=== PATIENT | male | born 1935 | race Caucasian/White ===

== ENCOUNTER 2017-04-29 07:11 | Day surgery (SDC) | payer MEDICARE, BC ==
[~2017-04-29 07:11] MED LIST: Bupivacaine 0.5%/EPINEPHrine 1:200,000 30 ML SDV ONE; Lactated Ringers 1,000 ML IV SCH; Midazolam 1 MG/ML 2 ML SDV ONE; Propofol 200 MG/20 ML SDV ONE; Sodium Chloride 0.9% 5 ML Syringe FLUSH PRN; Water For Injection, Sterile 20 ML ONE; ceFAZolin 1 GM Vial ONE; fentaNYL 100 MCG/2 ML SDV ONE
[2017-04-29] MEDS ORDERED: Lactated Ringers 1,000 ML ONE (07:26)
[2017-04-29] MEDS ORDERED: Propofol 200 MG/20 ML SDV ONE ×2 (08:01→08:32)
[2017-04-29] MEDS ORDERED: Midazolam 1 MG/ML 2 ML SDV IV ONE (08:10)
[2017-04-29] MEDS ORDERED: ceFAZolin 1 GM Vial IV ONE (08:10)
[2017-04-29] MEDS ORDERED: fentaNYL 100 MCG/2 ML SDV IV ONE (08:10)
[2017-04-29] MEDS ORDERED: Propofol 200 MG/20 ML SDV IV ONE (08:10)
[2017-04-29] MEDS ORDERED: Bupivacaine 0.5%/EPINEPHrine 1:200,000 30 ML SDV INFILT ONE ×2 (08:40)
[2017-04-29] MEDS ORDERED: Water For Injection, Sterile 20 ML SDV ONE (08:40)
[2017-04-29] MEDS ORDERED: ceFAZolin 1 GM Vial ONE (08:40)
--- NOTE | 2017-04-29 10:13 | PCM.OPNOTE ---
- General Post-Op/Procedure Note Date of Surgery/Procedure: 04/29/17 Operative Procedure(s): Left Inguinal Herniorraphy with mesh Repair. Anesthesia Technique: Moderate Sedation Primary Surgeon: Avni Spencer Condition: Good Free Text/Narrative:: Dictated.
[2017-04-29] MEDS ORDERED: Acetaminophen 325 MG Tab PO STA (14:59)
[2017-04-29 15:07] VITALS: BP 162/81
--- NOTE | 2017-04-30 08:20 | OR ---
DATE OF SURGERY: 04/29/2017 SURGEON: Avni Spencer MD PREOPERATIVE DIAGNOSIS: Left inguinal hernia. POSTOPERATIVE DIAGNOSIS: Left inguinal hernia, indirect and indirect components. OPERATION PERFORMED: Left inguinal herniorrhaphy using Marlex mesh. INCIDENTAL FINDINGS: Mild ascites noted in the abdomen. The fluid was sent for culture sensitivity and cytology. Informed consent was obtained from the patient regarding this procedure. All possible complications were thoroughly discussed with this patient. These include infection, pain, bleeding, vascular injury, nerve injury, recurrence, and other unknown complications. The patient decided to proceed. The patient was taken to the operating room. A satisfactory spinal anesthetic was administered by the annealing torch operator. The patient was then kept in the supine position. His abdomen was thoroughly prepped and draped in the usual fashion. A linear incision was made in the left inguinal region parallel to the inguinal ligament. Subcutaneous dissection was performed. The external oblique fascia was opened along the line of the skin incision. The cord structures were identified and kept out of harm's way. A fairly significant indirect sac was noted. The sac was carefully dissected away from the spermatic cord and neighboring structures. The sac was opened. There was a [id number] amount of ascitic fluid present. Fluid was aspirated. The fluid was sent for cytology as well as C and S. A high ligation of the sac was then performed with 0-silk suture. The excess sac was excised and sent for histology. The direct defect was sutured by placing a Marlex mesh and attaching it to the tissue around the pubic symphysis, the conjoint tendon, and the reflected portion of the inguinal ligament inferiorly. Good support of the posterior floor in the direct area was obtained. The wound was irrigated. The external oblique fascia was closed or the cord structures. The ilioinguinal nerve was seen and kept out of harm's way throughout the procedure. Subcutaneous tissue was approximated with 3-0 Polysorb. Skin was closed using stainless steel clips. Approximately 5 mL of Marcaine 0.5% was instilled into the wound for postoperative pain. The patient tolerated the procedure well. He was transferred to the recovery room in excellent condition. Blood loss was negligible. Sponge, needle, and instrument count were correct. /[id number]/MODL MTDD
== END 2017-04-29 15:42 | disposition home or self-care (01) ==
LOC: KA.SDS 07:11
PROVIDERS: ATTEND Family Medicine
DX: K40.90 Unilateral inguinal hernia, without obstruction or gangrene, not specified as recurrent (principal); E78.5 Hyperlipidemia, unspecified; N40.1 Benign prostatic hyperplasia with lower urinary tract symptoms; Z79.899 Other long term (current) drug therapy
CPT/HCPCS: 00830; 49505; 87070; 87075; A9270; C1781; J0690; J2250; J2704; J3010; J7120; 88112; 88302; 88305

== ENCOUNTER 2017-04-29 22:56 | Emergency (ER) | payer MEDICARE, BC ==
--- NOTE | 2017-04-29 23:13 | EDM.PDOC ---
ED HPI GENERAL MEDICAL PROBLEM - General Chief Complaint: Genitourinary Problem Stated Complaint: bloody urine Time Seen by Provider: 04/29/17 23:07 Source of Information: Reports: Patient History Limitations: Reports: No Limitations - History of Present Illness INITIAL COMMENTS - FREE TEXT/NARRATIVE: PT STATES HE UNDERWENT HERNIA REPAIR BY DR DRAKE THIS MORNING AND REQUIRED A URINARY ZAMAN CATH FOR RETENTION. NOTICED AT ABOUT 2000 TONIGHT BLOOD IN ZAMAN BAG. SEEMED TO GET WORSE SO PRESENTED TO ER. DENIES ABD PAIN, TESTICULAR PAIN, CP, SOB, N/V. Duration: Hour(s): Severity: Mild Improves with: Reports: None Worsens with: Reports: None Associated Symptoms: Reports: No Other Symptoms - Related Data Allergies Allergy/AdvReac Type Severity Reaction Status Date / Time No Known Drug Allergies Allergy NKDA Verified 04/29/17 07:34 Home Meds: Home Meds Flaxseed Oil [Flax Oil] 1,000 mg PO DAILY 04/28/17 [History] Multivitamin with Minerals [Multiple Vitamin] 1 tab PO DAILY 04/28/17 [History] Pravastatin [Pravachol] 40 mg PO DAILY 04/28/17 [History] Vardenafil HCl [Levitra] 2.5 mg PO DAILY PRN 04/28/17 [History] amLODIPine [Norvasc] 10 mg PO DAILY 04/28/17 [History] Past Medical History HEENT History: Reports: Cataract, Impaired Vision Cardiovascular History: Reports: High Cholesterol, Hypertension Genitourinary History: Reports: BPH, Other (See Below) Other Genitourinary History: Erectial dysfunction Oncologic (Cancer) History: Reports: Squamous Cell Carcinoma - Infectious Disease History Infectious Disease History: Reports: Chicken Pox, Measles, Mumps - Past Surgical History HEENT Surgical History: Reports: Cataract Surgery Cardiovascular Surgical History: Reports: None Male Surgical History: Reports: None Oncologic Surgical History: Reports: None Social & Family History - Family History Family Medical History: Noncontributory - Tobacco Use Smoking Status *Q: Never Smoker - Caffeine Use Caffeine Use: Reports: Tea - Recreational Drug Use Recreational Drug Use: No ED ROS GENERAL - Review of Systems Review Of Systems: ROS reveals no pertinent complaints other than HPI. Constitutional: Reports: No Symptoms HEENT: Reports: No Symptoms Respiratory: Reports: No Symptoms Cardiovascular: Reports: No Symptoms Endocrine: Reports: No Symptoms GI/Abdominal: Reports: No Symptoms : Reports: Hematuria Musculoskeletal: Reports: No Symptoms Skin: Reports: No Symptoms Neurological: Reports: No Symptoms Psychiatric: Reports: No Symptoms Hematologic/Lymphatic: Reports: No Symptoms Immunologic: Reports: No Symptoms ED EXAM, RENAL/ - Physical Exam Exam: See Below Exam Limited By: No Limitations General Appearance: Alert, WD/WN, No Apparent Distress Throat/Mouth: Normal Inspection, Normal Oropharynx, No Airway Compromise Respiratory/Chest: No Respiratory Distress, Lungs Clear, Normal Breath Sounds Cardiovascular: Regular Rate, Rhythm GI/Abdominal: Normal Bowel Sounds, Soft, Non-Tender, No Distention (Male) Exam: Other (URINARY ZAMAN IN PLACE). No: Circumcised Back Exam: Normal Inspection. No: CVA Tenderness (L), CVA Tenderness (R) Extremities: Normal Inspection, No Pedal Edema Neurological: Alert, Oriented, Normal Cognition Psychiatric: Normal Affect, Normal Mood Skin Exam: Warm, Dry, Intact, Normal Color, No Rash Course - Re-Assessments/Exams Free Text/Narrative Re-Assessment/Exam: 04/29/17 23:12 PT AFEBRILE, NONTOXIC APPEARING, VSS. URINARY ZAMAN IRRIGATED TO CLEAR. NO BLOOD CLOTS OR DIFFICULTY NOTED. PT SCHEDULED FOR F/U AT [facility] IN AM Departure - Departure Time of Disposition: 23:14 Disposition: Home, Self-Care 01 Condition: Good Clinical Impression: Hematuria syndrome Zaman catheter problem Qualifiers: Encounter type: initial encounter Qualified Code(s): T83.9XXA - Unspecified complication of genitourinary prosthetic device, implant and graft, initial encounter - Discharge Information Instructions: Zaman Catheter Care, Adult Referrals: Avni Spencer MD [Physician] - Forms: ED Department Discharge Additional Instructions: FOLLOW UP AT [facility] TOMORROW MORNING SCHEDULED - Assessment/Plan Assessment:: HEMATURIA SECONDARY TO ZAMAN CATH Plan: F/U AT [facility] IN AM
[2017-04-29 23:31] VITALS: BP 163/59
== END 2017-04-29 23:20 | disposition home or self-care (01) ==
LOC: KA.ED 22:56
DX: T83.83XA Hemorrhage due to genitourinary prosthetic devices, implants and grafts, initial encounter (principal); R31.9 Hematuria, unspecified; E78.00 Pure hypercholesterolemia, unspecified; I10 Essential (primary) hypertension; K40.90 Unilateral inguinal hernia, without obstruction or gangrene, not specified as recurrent; E78.5 Hyperlipidemia, unspecified; N40.1 Benign prostatic hyperplasia with lower urinary tract symptoms; Z98.49 Cataract extraction status, unspecified eye; Z79.899 Other long term (current) drug therapy
CPT/HCPCS: 00830; 49505; 87070; 87075; 88112; 88302; 88305; 99282; 99283; A9270; C1781; J0690; J2250; J2704; J3010; J7120

== ENCOUNTER 2021-02-14 13:00 | Emergency (ER) | payer MEDICARE, BC ==
[2021-02-14] MEDS ORDERED: Sodium Chloride 0.9% 1,000 ML IV SCH (13:30)
--- NOTE | 2021-02-14 13:31 | EDM.PDOC ---
ED HPI GENERAL MEDICAL PROBLEM - General Chief Complaint: Cardiovascular Problem Stated Complaint: DIZZY Time Seen by Provider: 02/14/21 13:05 Source of Information: Reports: Patient, Significant Other History Limitations: Reports: No Limitations - History of Present Illness INITIAL COMMENTS - FREE TEXT/NARRATIVE: Patient presents with some general weakness for about a week. He fell 8 days ago. He has cancer in "all" his bones but it doesn't seem to be progressing fast. Had that checked 2 weeks ago at [place]. He doesn't drink much water, about 2 cups a day. He feels a little dizzy or lightheaded sometimes - Related Data Allergies Allergy/AdvReac Type Severity Reaction Status Date / Time No Known Drug Allergies Allergy NKDA Verified 02/14/21 13:07 Home Meds: Home Meds Multivitamin with Minerals [Multiple Vitamin] 1 tab PO DAILY 04/28/17 [History] Pravastatin [Pravachol] 40 mg PO BEDTIME 04/28/17 [History] Vardenafil HCl [Levitra] 2.5 mg PO DAILY PRN 04/28/17 [History] amLODIPine [Norvasc] 10 mg PO BEDTIME 04/28/17 [History] Finasteride 5 mg PO DAILY 02/14/21 [History] Past Medical History HEENT History: Reports: Cataract, Impaired Vision Cardiovascular History: Reports: High Cholesterol, Hypertension Genitourinary History: Reports: BPH, Other (See Below) Other Genitourinary History: Erectial dysfunction Oncologic (Cancer) History: Reports: Squamous Cell Carcinoma - Infectious Disease History Infectious Disease History: Reports: Chicken Pox, Measles, Mumps - Past Surgical History HEENT Surgical History: Reports: Cataract Surgery Cardiovascular Surgical History: Reports: None Male Surgical History: Reports: None Oncologic Surgical History: Reports: None Social & Family History - Family History Family Medical History: No Pertinent Family History - Caffeine Use Caffeine Use: Reports: Tea ED ROS GENERAL - Review of Systems Review Of Systems: See Below Constitutional: Reports: Weakness. Denies: Fever, Chills, Malaise HEENT: Denies: Ear Pain, Throat Pain, Vision Change Respiratory: Reports: Shortness of Breath (none to mild). Denies: Cough Cardiovascular: Reports: Lightheadedness (sometimes feels "heavy"). Denies: Chest Pain, Syncope GI/Abdominal: Denies: Abdominal Pain, Constipation, Diarrhea, Nausea, Vomiting : Denies: Dysuria, Flank Pain Musculoskeletal: Denies: Neck Pain, Shoulder Pain, Arm Pain, Back Pain, Hand Pain, Leg Pain, Foot Pain Skin: Denies: Cyanosis, Jaundice, Mottled, Pallor, Diaphoresis Neurological: Denies: Confusion, Dizziness, Headache, Seizure, Syncope, Trouble Speaking, Difficulty Walking Psychiatric: Denies: Agitation, Anxiety, Confusion ED EXAM, GENERAL - Physical Exam Exam: See Below Exam Limited By: No Limitations General Appearance: Alert, WD/WN, No Apparent Distress Eye Exam: Bilateral Eye: EOMI, Normal Inspection, PERRL Ears: Normal External Exam, Hearing Grossly Normal Nose: Normal Inspection, No Blood Throat/Mouth: Normal Inspection, Normal Lips, Normal Voice, No Airway Compromise Head: Atraumatic, Normocephalic Neck: Normal Inspection, Full Range of Motion Respiratory/Chest: No Respiratory Distress, Lungs Clear, Normal Breath Sounds, No Accessory Muscle Use Cardiovascular: Normal Peripheral Pulses, No Edema, No Gallop, No JVD, No Murmur, Bradycardia (55) GI/Abdominal: Normal Bowel Sounds, Soft, Non-Tender, No Organomegaly, No Distention, No Abnormal Bruit Back Exam: Normal Inspection, Full Range of Motion. No: CVA Tenderness (L), CVA Tenderness (R) Extremities: Normal Inspection, Normal Range of Motion, Non-Tender Neurological: Alert, Oriented, Normal Cognition, No Motor/Sensory Deficits Psychiatric: Normal Affect, Normal Mood Skin Exam: Warm, Dry, Intact, Normal Color, No Rash Course - Vital Signs Last Recorded V/S: Last Vital Signs Temp 97.2 F 02/14/21 13:08 Pulse 51 L 02/14/21 14:15 Resp 14 02/14/21 14:15 BP 137/63 02/14/21 14:15 Pulse Ox 96 02/14/21 14:15 - Orders/Labs/Meds Orders: Active Orders 24 hr Category Date Time Status EKG Documentation Completion [RC] ASDIRECTED Care 02/14/21 13:17 Ordered Sodium Chloride 0.9% [Normal Saline] 1,000 ml Med 02/14/21 13:30 Ordered IV ASDIRECTED EKG 12 Lead [EK] Stat Ther 02/14/21 13:16 Ordered Medication Orders Sodium Chloride (Normal Saline) 1,000 mls @ 1,000 mls/hr IV ASDIRECTED KAYLEEN Last Admin: 02/14/21 13:26 Dose: 1,000 mls/hr Documented by: HUONG Labs: Laboratory Tests 02/14/21 02/14/21 02/14/21 Range/Units 13:10 13:10 13:10 WBC 10.90 H (5.00-10.00) 10^3/uL RBC 4.94 (4.50-6.00) 10^6/uL Hgb 14.6 (13.0-17.0) g/dL Hct 41.7 (40.0-52.0) % MCV 84.4 (82.0-92.0) fL MCH 29.6 (27.0-31.0) pg MCHC 35.0 (32.0-36.0) g/dL RDW 13.1 (11.5-14.5) % Plt Count 213 (150-400) 10^3/uL MPV 10.4 (7.4-10.4) fL Immature Gran % (Auto) 0.2 (0.0-5.0) % Neut % (Auto) 47.0 L (50.0-70.0) % Lymph % (Auto) 44.5 H (20.0-40.0) % Desha % (Auto) 5.8 (2.0-8.0) % Eos % (Auto) 1.9 (1.0-3.0) % Baso % (Auto) 0.6 (0.0-1.0) % Neut # (Auto) 5.13 (2.50-7.00) 10^3/uL Lymph # (Auto) 4.85 H (1.00-4.00) 10^3/uL Desha # (Auto) 0.63 (0.10-0.80) 10^3/uL Eos # (Auto) 0.21 (0.10-0.30) 10^3/uL Baso # (Auto) 0.06 (0.00-0.10) 10^3/uL Immature Gran # (Auto) 0.02 (0.00-0.50) 10^3/uL Sodium 137 (136-145) mmol/L Potassium 4.0 (3.5-5.1) mmol/L Chloride 104 (98-107) mmol/L Carbon Dioxide 20.1 L (21.0-32.0) mmol/L Anion Gap 16.9 H (5-15) mmol/L BUN 31 H (7-18) mg/dL Creatinine 1.23 H (0.51-1.17) mg/dL Est Cr Clr Drug Dosing 38.72 mL/min Estimated GFR (MDRD) 56 mL/min Glucose 103 (70-140) mg/dL Calcium 8.8 (8.7-10.3) mg/dL Magnesium 1.8 (1.8-2.4) mg/dL Total Bilirubin 0.6 (0.2-1.0) mg/dL AST 12 L (15-37) U/L ALT 28 (14-63) U/L Alkaline Phosphatase 65 (46-116) U/L Troponin I High Sens < 4.000 (0-76.000) pg/mL Total Protein 8.0 (6.4-8.2) g/dL Albumin 3.06 L (3.40-5.00) g/dL Meds: Medications Generic Name Dose Route Start Last Admin Trade Name Freq PRN Reason Stop Dose Admin Sodium Chloride 1,000 mls @ 1,000 mls/hr 02/14/21 13:30 02/14/21 13:26 Normal Saline IV 1,000 mls/hr ASDIRECTED [facility] Administration - Re-Assessments/Exams Free Text/Narrative Re-Assessment/Exam: 02/14/21 16:27 EKG shows sinus bradycardia with occasional PVCs. Rhythm shows PVCs with quite long pauses and overall HR of 57. Troponin is negative. BUN and Creat are mildly elevated but appears chronic. Patient doesn't feel a lot improved after the fluid bolus. I discussed case with pneumatic systems operator Dr. Cummings at [facility] who reviewed the EKG and rhythm strip. He thinks it is likely there isn't a block but just a compensatory pause after a PVC. He feels it would be reasonable to observe there however. I discussed findings and recommendations with patient and his . They would like to go to [place] today and find out what is going on. I called back and am now waiting for hospitalist to call. 02/14/21 16:40 The plan is to transfer patient to [facility] for cardiology consult once accepted by hospitalist. They have a couple patients ahead of us and may be delayed. Patient is stable. Wants to go by private vehicle with his driving which I feel is reasonable, especially since the pneumatic systems operator felt patient may be okay to follow outpatient. 02/14/21 16:54 Dr. Gomez, hospitalist called back with acceptance. They will call with room number shortly. I discussed plan with patient and his . She will drive him to [place]. Patient is full code per discussion today. Departure - Departure Time of Disposition: 16:54 Disposition: DC/Tfer to [facility] 02 Reason for Transfer *Q: Other Condition: Good Clinical Impression: General weakness, Bradycardia, PVCs (premature ventricular contractions) Dysrhythmia, cardiac Qualifiers: Arrhythmia type: unspecified cardiac arrhythmia Qualified Code(s): I49.9 - Cardiac arrhythmia, unspecified Forms: ED Department Discharge Sepsis Event Note (ED) - Evaluation Sepsis Screening Result: No Definite Risk - Focused Exam Vital Signs: Vital Signs Temp Pulse Resp BP Pulse Ox 02/14/21 14:15 51 L 14 137/63 96 02/14/21 14:01 48 L 20 132/67 97 02/14/21 13:45 53 L 14 131/72 95 02/14/21 13:31 52 L 17 138/65 96 02/14/21 13:21 62 18 133/60 94 L 02/14/21 13:08 97.2 F 45 L 20 140/63 97 - My Orders Last 24 Hours: My Active Orders 02/14/21 13:16 EKG 12 Lead [EK] Stat 02/14/21 13:17 EKG Documentation Completion [RC] ASDIRECTED 02/14/21 13:30 Sodium Chloride 0.9% [Normal Saline] 1,000 ml IV ASDIRECTED - Assessment/Plan Last 24 Hours: My Active Orders 02/14/21 13:16 EKG 12 Lead [EK] Stat 02/14/21 13:17 EKG Documentation Completion [RC] ASDIRECTED 02/14/21 13:30 Sodium Chloride 0.9% [Normal Saline] 1,000 ml IV ASDIRECTED
[2021-02-14 13:36] LABS: ANION GAP 16.9 mmol/L (5-15); CHLORIDE,CL 104 mmol/L (98-107); SODIUM,NA 137 mmol/L (136-145)
[2021-02-14 18:04] VITALS: BP 160/90; PULSE 70
== END 2021-02-14 18:01 ==
LOC: KA.ED 13:00
DX: I49.3 Ventricular premature depolarization (principal); I49.9 Cardiac arrhythmia, unspecified; E78.00 Pure hypercholesterolemia, unspecified; I10 Essential (primary) hypertension; Z79.899 Other long term (current) drug therapy
CPT/HCPCS: 36415; 80053; 83735; 84484; 85025; 93005; 99285; J7030; 99284

== ENCOUNTER 2023-05-12 18:33 | Emergency (ER) | payer MEDICARE, BC ==
[2023-05-12] MEDS ORDERED: Sodium Chloride 0.9% 10 ML Syringe FLUSH PRN (18:45)
[2023-05-12 19:13] LABS: BASOPHILS ABSOLUTE AUTO 0.03 10^3/uL (0.00-0.10); BASOPHILS PERCENT AUTO 0.2 % (0.0-1.0); HEMATOCRIT 42.3 % (40.0-52.0); HEMOGLOBIN 14.7 g/dL (13.0-17.0); IMMATURE GRAN ABSOLUTE AUTO 0.05 10^3/uL (0.00-0.50); IMMATURE GRAN PERCENT AUTO 0.4 % (0.0-5.0); LYMPHOCYTES ABSOLUTE AUTO 1.19 10^3/uL (1.00-4.00); LYMPHOCYTES PERCENT AUTO 8.6 % (20.0-40.0); MEAN CORPUSCULAR HEMOGLOBIN 29.5 pg (27.0-31.0); MEAN CORPUSCULAR HGB CONC 34.8 g/dL (32.0-36.0); MEAN CORPUSCULAR VOLUME 84.9 fL (82.0-92.0); MEAN PLATELET VOLUME 8.8 fL (7.4-10.4); MONOCYTES ABSOLUTE AUTO 0.38 10^3/uL (0.10-0.80); MONOCYTES PERCENT AUTO 2.8 % (2.0-8.0); NEUTROPHILS ABSOLUTE AUTO 12.13 10^3/uL (2.50-7.00); PLATELET COUNT,PLT 268 10^3/uL (150-400); RED BLOOD CELL COUNT 4.98 10^6/uL (4.50-6.00); RED CELL DISTRIBUTION WIDTH 12.9 % (11.5-14.5); WHITE BLOOD CELL COUNT,WBC 13.78 10^3/uL (5.00-10.00)
[2023-05-12] MEDS ORDERED: Acetaminophen 500 MG Tab PO ONE (19:16)
[2023-05-12 19:30] LABS: ALANINE AMINOTRANSFERASE,ALT 23 U/L (14-63); ALBUMIN 2.78 g/dL (3.40-5.00); ALKALINE PHOSPHATASE 80 U/L (46-116); ASPARTATE AMNIOTRANSFERASE,AST 15 U/L (15-37); BILIRUBIN TOTAL 0.5 mg/dL (0.2-1.0); BLOOD UREA NITROGEN,BUN 19 mg/dL (7-18); CALCIUM 8.2 mg/dL (8.7-10.3); CARBON DIOXIDE,CO2 22.3 mmol/L (21.0-32.0); CHLORIDE,CL 99 mmol/L (98-107); CREATININE 1.15 mg/dL (0.51-1.17); EST CRCL DRUG DOSING (CG) 39.88 mL/min; GLUCOSE RANDOM 161 mg/dL (70-140); POTASSIUM,K 4.3 mmol/L (3.5-5.1); PROTEIN TOTAL,TP 8.2 g/dL (6.4-8.2); SODIUM,NA 131 mmol/L (136-145)
[2023-05-12 19:31] LABS: ESTIMATED GFR 61 mL/min (>=60)
[2023-05-12 19:33] LABS: LACTIC ACID 1.9 mmol/L (0.4-2.0)
[2023-05-12] MEDS ORDERED: Albuterol/Ipratropium 3.0-0.5 MG/3 ML Neb Soln NEB ONE (19:35)
[2023-05-12 19:39] LABS: B-TYPE NATRIURETIC PEPTIDE,BNP 81 pg/mL (0-100)
[2023-05-12 20:05] LABS: INFLUENZA A NAA NEGATIVE (NEGATIVE); INFLUENZA B NAA NEGATIVE (NEGATIVE); RESPIRATORY SYNCYTIAL VIR NAA NEGATIVE (NEGATIVE)
[2023-05-12 20:08] LABS: CORONAVIRUS COVID-19 NAA NEGATIVE (NEGATIVE)
[2023-05-12 20:35] VITALS: BP 120/56; PULSE 82
[2023-05-12] MEDS ORDERED: Ibuprofen 600 MG Tab PO ONE (20:37)
[2023-05-12] MEDS ORDERED: Cefdinir 300 MG Cap PO ONE (20:38)
[2023-05-12] MEDS ORDERED: Benzonatate 100 MG Cap PO ONE (20:39)
== END 2023-05-12 21:30 | disposition home or self-care (01) ==
LOC: KA.ED 18:33
DX: R05.2 Subacute cough (principal); D72.829 Elevated white blood cell count, unspecified; R53.1 Weakness; I10 Essential (primary) hypertension; E78.00 Pure hypercholesterolemia, unspecified; Z20.822 Contact with and (suspected) exposure to COVID-19
CPT/HCPCS: 0241U; 36415; 71045; 80053; 83605; 83880; 84484; 85025; 87040; 93005; 93010; 94640; 99284; 99285; A9270-GY; J7620-GY

== ENCOUNTER 2023-06-15 13:55 | Emergency (ER) | payer MEDICARE, BC ==
[2023-06-15] MEDS ORDERED: Lidocaine/Epineph/Tetracaine 3 ML Syringe ONE (14:21)
[2023-06-15] MEDS ORDERED: Diphtheria,Pertussis(Acell),Tetanus Vaccine 0.5 ML Syringe IM ONE (14:32)
[2023-06-15 18:04] VITALS: BP 146/64; PULSE 59
== END 2023-06-15 14:55 | disposition home or self-care (01) ==
LOC: KA.ED 13:55
DX: S01.01XA Laceration without foreign body of scalp, initial encounter (principal); Z23 Encounter for immunization; I10 Essential (primary) hypertension; E78.00 Pure hypercholesterolemia, unspecified; Z79.899 Other long term (current) drug therapy; W22.8XXA Striking against or struck by other objects, initial encounter
CPT/HCPCS: 12002; 90471; 90715; 99282-25; 99283; A9270-GY

== ENCOUNTER 2024-06-24 15:20 | Emergency (ER) | payer MEDICARE, BC ==
[2024-06-24 16:21] LABS: BASOPHILS ABSOLUTE AUTO 0.03 10^3/uL (0.00-0.10); BASOPHILS PERCENT AUTO 0.3 % (0.0-1.0); EOSINOPHILS ABSOLUTE AUTO 0.19 10^3/uL (0.10-0.30); EOSINOPHILS PERCENT AUTO 1.6 % (1.0-3.0); HEMATOCRIT 37.7 % (40.0-52.0); IMMATURE GRAN ABSOLUTE AUTO 0.05 10^3/uL (0.00-0.50); IMMATURE GRAN PERCENT AUTO 0.4 % (0.0-5.0); LYMPHOCYTES ABSOLUTE AUTO 4.66 10^3/uL (1.00-4.00); LYMPHOCYTES PERCENT AUTO 39.5 % (20.0-40.0); MEAN CORPUSCULAR HEMOGLOBIN 29.7 pg (27.0-31.0); MEAN CORPUSCULAR HGB CONC 34.5 g/dL (32.0-36.0); MEAN CORPUSCULAR VOLUME 86.1 fL (82.0-92.0); MEAN PLATELET VOLUME 9.3 fL (7.4-10.4); MONOCYTES ABSOLUTE AUTO 0.63 10^3/uL (0.10-0.80); MONOCYTES PERCENT AUTO 5.3 % (2.0-8.0); NEUTROPHILS ABSOLUTE AUTO 6.25 10^3/uL (2.50-7.00); NEUTROPHILS PERCENT AUTO 52.9 % (50.0-70.0); PLATELET COUNT,PLT 231 10^3/uL (150-400); RED BLOOD CELL COUNT 4.38 10^6/uL (4.50-6.00); RED CELL DISTRIBUTION WIDTH 13.3 % (11.5-14.5); WHITE BLOOD CELL COUNT,WBC 11.81 10^3/uL (5.00-10.00)
[2024-06-24 16:34] LABS: ANION GAP 12.3 mmol/L (5-15); CALCIUM 7.9 mg/dL (8.7-10.3); CARBON DIOXIDE,CO2 25.5 mmol/L (21.0-32.0); CREATININE 1.2 mg/dL (0.51-1.17); EST CRCL DRUG DOSING (CG) 40.16 mL/min; POTASSIUM,K 3.8 mmol/L (3.5-5.1)
[2024-06-24 18:12] VITALS: BP 167/82; PULSE 62
== END 2024-06-24 17:15 | disposition home or self-care (01) ==
LOC: KA.ED 15:20
DX: S09.90XA Unspecified injury of head, initial encounter (principal); R42 Dizziness and giddiness; I10 Essential (primary) hypertension; E78.00 Pure hypercholesterolemia, unspecified; Z90.89 Acquired absence of other organs; Z79.01 Long term (current) use of anticoagulants; Z79.899 Other long term (current) drug therapy; Z87.828 Personal history of other (healed) physical injury and trauma; W01.198A Fall on same level from slipping, tripping and stumbling with subsequent striking against other object, initial encounter
CPT/HCPCS: 36415; 70450; 80048; 85025; 99284